=== PATIENT | female | born 1975 | race Caucasian/White ===

== ENCOUNTER 2022-06-29 06:05 | Day surgery (SDC) | payer OTHER ==
[2022-06-27 13:38] LABS: BASOPHILS % (AUTO) 0.4 % (0.0-2.0); EOSINOPHILS # (AUTO) 0.2 K/uL (0.0-0.4); EOSINOPHILS % (AUTO) 2.3 % (0.0-4.0); HEMATOCRIT 36.5 % (36-48); HEMOGLOBIN 11.8 g/dL (12.0-16.0); LYMPHOCYTES # (AUTO) 2.1 K/uL (1.0-5.5); LYMPHOCYTES % (AUTO) 27.8 % (20.5-51.5); MEAN CORPUSCULAR HEMOGLOBIN 26 pg (27-31); MEAN CORPUSCULAR HGB CONC 32 % (32-36); MEAN CORPUSCULAR VOLUME 79 fL (79.0-98.0); MONOCYTES # (AUTO) 0.3 K/uL (0.0-1.0); MONOCYTES % (AUTO) 4.6 % (1.7-9.3); NEUTROPHILS # (AUTO) 4.9 K/uL (1.8-7.7); NEUTROPHILS % (AUTO) 64.9 % (40.0-70.0); PLATELET COUNT (AUTO) 326 K/uL (130-430); RED BLOOD CELL COUNT(AUTO) 4.61 MIL/uL (4.2-6.2); RED CELL DISTRIBUTION WIDTH 14.8 % (9.0-15.0); WHITE BLOOD COUNT (AUTO) 7.6 K/uL (4.8-10.8)
[2022-06-27 14:19] LABS: BILIRUBIN,URINE NEGATIVE (NEGATIVE); CLARITY/URINE CLEAR (CLEAR); COLOR,URINE YELLOW (YELLOW); GLUCOSE,URINE NEGATIVE (NEGATIVE); KETONES,URINE TRACE (NEGATIVE); LEUKOCYTE ESTERASE ,URINE NEGATIVE (NEGATIVE); NITRITE, URINE NEGATIVE (NEGATIVE); PH,URINE 5.5 (5.0-8.0); PROTEIN URINE NEGATIVE (NEGATIVE); UROBILINOGEN,URINE 0.2 (0.2-1.0)
[2022-06-27 14:23] LABS: BLOOD, URINE TRACE (NEGATIVE)
[2022-06-27 14:36] LABS: RBC,URINE 0-3 /HPF (0-3); WBC,URINE 0-3 /HPF (0-3)
[2022-06-27 14:37] LABS: BACTERIA,URINE RARE /HPF (None Seen)
[~2022-06-29] VITALS: Ht 162.6 cm; Wt 95.3 kg
[2022-06-29] MEDS ORDERED: CEFAZOLIN SOD 2 GM in D5W 50 ML IV ONE (07:00)
[2022-06-29] MEDS ORDERED: ROPIVACAINE HCL/PF 0.2% EPIDURAL 100 ML PLAST..BAG ONE (09:13)
[2022-06-29] MEDS ORDERED: ROPIVACAINE HCL/PF 0.2% EPIDURAL 200 ML PLAST..BAG ONE ×2 (09:13→10:00)
[2022-06-29] MEDS ORDERED: hydrALAZINE HCL 20 MG/ML VIAL IVP PRN (09:45)
[2022-06-29] MEDS ORDERED: KETOROLAC TROMETHAMINE 30 MG VIAL IVP PRN (09:45)
[2022-06-29] MEDS ORDERED: HYDROmorphone 1 MG/ML INJ. CARTRIDGE IVP PRN (09:45)
[2022-06-29] MEDS ORDERED: ONDANSETRON HCL 4 MG/2 ML VIAL IVP PRN ×2 (09:45→10:30)
[2022-06-29] MEDS ORDERED: ACETAMINOPHEN I.V. 1000 MG 100 ML IV ONE (09:45)
[2022-06-29] MEDS ORDERED: METOCLOPRAMIDE HCL 10 MG/2 ML VIAL IVP PRN (09:45)
[2022-06-29] MEDS ORDERED: PHENYLEPHRINE HCL 10 MG/ML VIAL (NEOSYNEPHRINE) ONE (10:00)
[2022-06-29] MEDS ORDERED: WATER FOR INJECTION,STERILE 20 ML VIAL IV ONE (10:00)
[2022-06-29] MEDS ORDERED: MIDAZOLAM HCL 50 mg/10 mL INJ. VIAL ONE (10:00)
[2022-06-29] MEDS ORDERED: SEVOFLURANE 15 MIN GAS INH ONE (10:00)
[2022-06-29] MEDS ORDERED: ONDANSETRON HCL 4 MG/2 ML VIAL ONE (10:00)
[2022-06-29] MEDS ORDERED: SUCCINYLCHOLINE CHLORIDE 20 MG/ML(QUELICIN) ONE (10:00)
[2022-06-29] MEDS ORDERED: NS IRRIG SOLN 1000 ML IR ONE (10:00)
[2022-06-29] MEDS ORDERED: BUPIVACAINE /EPINEPHRINE/PF 0.5% 30 ML VIAL INJ ONE (10:00)
[2022-06-29] MEDS ORDERED: PROPOFOL 200MG/ 20ML VIAL (DIPRIVAN) IV ONE (10:00)
[2022-06-29] MEDS ORDERED: DEXTROSE 50% JECT 50 ML DISP.SYRIN ONE (10:00)
[2022-06-29] MEDS ORDERED: GLYCOPYRROLATE 0.2 MG/ML VIAL ONE (10:00)
[2022-06-29] MEDS ORDERED: NS 1000 ML IV.SOLN IV ONE (10:00)
[2022-06-29] MEDS ORDERED: FUROSEMIDE 20 MG/2 ML VIAL ONE (10:00)
[2022-06-29] MEDS ORDERED: ROCURONIUM BROMIDE 10 MG/ML (ZEMURON) ONE (10:00)
[2022-06-29] MEDS ORDERED: ceFAZolin SODIUM 1 GM VIAL ONE (10:00)
[2022-06-29] MEDS ORDERED: fentaNYL CITRATE/PF 100 MCG/2 ML AMP ONE (10:00)
[2022-06-29] MEDS ORDERED: ROPIVACAINE HCL/PF 5 MG/ML 0.5% 30 ML VIAL ONE (10:00)
[2022-06-29] MEDS ORDERED: OXYCODONE/ACETAMINOPHEN 5-325 TABLET PO PRN ×2 (10:30)
[2022-06-29] MEDS ORDERED: HYDROcodone/ACETAMIN 5-325 MG TAB (NORCO/ VICODIN) PO PRN (10:30)
[2022-06-29] MEDS ORDERED: KETOROLAC TROMETHAMINE 30 MG VIAL ONE (11:00)
[2022-06-29] MEDS ORDERED: IBUPROFEN 600 MG TABLET PO SCH (12:00)
[2022-06-29] MEDS ORDERED: SIMETHICONE 80 MG TAB.CHEW PO SCH (13:00)
[2022-06-29 14:15] VITALS: BP_SYST 150
== END 2022-06-29 14:15 | disposition home or self-care (01) ==
LOC: SDS 06:05 → SMU 06:06 → SDS 14:15
PROVIDERS: ATTEND Specialist
DX: N92.0 Excessive and frequent menstruation with regular cycle (principal); I10 Essential (primary) hypertension; D21.9 Benign neoplasm of connective and other soft tissue, unspecified; N80.03 Adenomyosis of the uterus; J45.909 Unspecified asthma, uncomplicated; Z98.890 Other specified postprocedural states; Z79.899 Other long term (current) drug therapy
CPT/HCPCS: 81000; 84703; 85025; 36415; 93005; 71046; 87081; 58552; 64488; 88307; J3490 ×2; J0690; J1940; J1885; J2405; J2370; J2704; J2795; J0330; J3010; J7060; J7030; C1727; J0131; S2900